=== PATIENT | female | born 1985 | race Caucasian/White ===

== ENCOUNTER 2017-02-16 21:43 | Emergency (ER) | payer OTHER ==
[2017-02-16] MEDS ORDERED: SODIUM CHLORIDE 0.9% 1000 ML INFUS.BAG IV ONE (22:04)
[2017-02-16] MEDS ORDERED: ACETAMINOPHEN 325 MG TABLET (FP) PO ONE (22:05)
--- NOTE | 2017-02-16 22:05 | PDOC ---
History of Present Illness - General History Source: Patient Exam Limitations: No Limitations - History of Present Illness Initial Comments: 02/16/17 22:05 Patient is a 31 year old female, 22 weeks , who presents to the ED sent by her DIGITAL BUSINESS ANALYST for left flank pain and left sided abdominal pain. Patient states that the pain is localized at the left flank radiating to the left mid abdomen, sharp in nature and is exacerbated by movement and deep inspiration. Patient states that she developed the following pain at 4 PM today. She notes that she felt the same pain 3 weeks ago that lasted for approximately 45 mins and resolved on its own. She denies any hx of DVT or PE. She denies any fever, chills, nausea, vomiting or diarrhea. She denies dysuria, hematuria, urgency or hesitancy. Productivity Engineer - Dr. Nice <Treasure Loaiza - Last Filed: 02/16/17 22:05> <Elvia Fernandez - Last Filed: 02/17/17 00:15> - General Stated Complaint: PAIN Past History <Treasure Loaiza - Last Filed: 02/16/17 22:05> <Elvia Fernandez - Last Filed: 02/17/17 00:15> - Past Medical History Allergies/Adverse Reactions: Allergies Allergy/AdvReac Type Severity Reaction Status Date / Time No Known Allergies Allergy Verified 02/16/17 22:26 Review of Systems - Review of Systems Able to Perform ROS?: Yes Comments:: 02/16/17 22:06 GENERAL/CONSTITUTIONAL: No fever or chills. No weakness. HEAD, EYES, EARS, NOSE AND THROAT: No change in vision. No ear pain or discharge. No sore throat. GASTROINTESTINAL: (+)left sided abdominal pain. No nausea, vomiting, diarrhea or constipation. GENITOURINARY: No dysuria, frequency, or change in urination. CARDIOVASCULAR: No chest pain or shortness of breath. RESPIRATORY: No cough, wheezing, or hemoptysis. MUSCULOSKELETAL: (+)left flank pain. No joint or muscle swelling or pain. No neck or back pain. SKIN: No rash NEUROLOGIC: No headache, vertigo, loss of consciousness, or change in strength/ sensation. ENDOCRINE: No increased thirst. No abnormal weight change. HEMATOLOGIC/LYMPHATIC: No anemia, easy bleeding, or history of blood clots. ALLERGIC/IMMUNOLOGIC: No hives or skin allergy. <Treasure Loaiza - Last Filed: 02/16/17 22:05> *Physical Exam - Physical Exam Comments: 02/16/17 22:07 GENERAL: Awake, alert, and fully oriented, in no acute distress HEAD: No signs of trauma EYES: PERRLA, EOMI, sclera anicteric, conjunctiva clear ENT: Auricles normal inspection, nares patent, Moist mucosa NECK: Normal ROM, supple, no lymphadenopathy, JVD, or masses LUNGS: Breath sounds equal, clear to auscultation bilaterally. No wheezes, and no crackles HEART: Regular rate and rhythm, normal S1 and S2, no murmurs, rubs or gallops ABDOMEN: (+)Left mid quadrant tenderness and left flank tenderness upon palpation. (+)Gravid. Soft,normoactive bowel sounds. No guarding, no rebound. EXTREMITIES: Normal range of motion, no edema. No clubbing or cyanosis. No cords, erythema, or tenderness NEUROLOGICAL: Normal speech SKIN: Warm, Dry, normal turgor, no rashes or lesions noted. <Treasure Loaiza - Last Filed: 02/16/17 22:05> ED Treatment Course - LABORATORY CBC & Chemistry Diagram: 02/16/17 22:40 02/16/17 22:40 <Elvia Fernandez - Last Filed: 02/17/17 00:15> Medical Decision Making - Medical Decision Making 02/16/17 21:59 31 yo F at 22 weeks here wtih c/o left sided abd pain, flank pain. started yesterday. worse withh movement and coughing, or deep breathing, also walking. no cp. no leg swelling. no ho pe or dvt. no vaginal bleeding. no loss of fluid. no urinary complaints. no h/o renal colic, no family h/o stones. had similar pain 3 weeks ago that lasted 45 min and resolved. on exam awake alert, NAD. lungs CTAB no wheeze or crackle. heart RRR no m/r/g. abd soft gravid. left mid quadrant ttp, left CVA tenderness legs no edema. plan : bedside ultrasound renal: no hydronephrosis noted. bladder no visualized stone. gravid uterus, heart rate 122 bpm, movement noted. femur length, 22 weeks and 2 days. differential uti pyelo, strain of . plan labs ua d/w pt ob. tylenol for pain control.. 02/17/17 00:12 pt labs and ua normal d/w pt dr dr. Burnham, will see in office tomorrow. told to call. recommend heat packs and tylenol. <Elvia Fernandez - Last Filed: 02/17/17 00:15> *DC/Admit/Observation/Transfer - Attestations Physician Attestion: 02/16/17 22:08 Documentation prepared by JOCY Pappas, acting as medical assistant supervisor for Elvia Fernandez MD. <Treasure Loaiza - Last Filed: 02/16/17 22:05> - Discharge Dispostion Admit: No <Elvia Fernandez - Last Filed: 02/17/17 00:15> Diagnosis at time of Disposition: Flank pain - Discharge Dispostion Disposition: HOME Condition at time of disposition: Improved - Patient Instructions Printed Discharge Instructions: Medications and Additional Instructions: you can use heat packs on your back for pain. drink plenty of fluids. follow up wt Dr. Burnham. you can take tylenol 500 mg every 6 hours as needed for pain. - Post Discharge Activity Work/School Note: Back to Work
[2017-02-16 22:26] VITALS: BP 115/60; PULSE 89; TEMP 97.4; BMI 29.8
[2017-02-16] MEDS ORDERED: ACETAMINOPHEN 325 MG TABLET (FP) ONE (22:27)
[2017-02-16 23:09] LABS: BASOPHIL 0.6 % (0-2.0); EOSINOPHIL 2.5 % (0-4.5); MCH 30.6 pg (25.7-33.7); MCHC 32.7 g/dl (32.0-36.0); MEAN CELL VOLUME 93.6 fl (80-96); NEUTROPHILS 70.3 % (42.8-82.8); PLATELET COUNT 313 K/MM3 (134-434); RDW 13.4 % (11.6-15.6); WHITE BLOOD COUNT 13.4 K/mm3 (4.0-10.0)
[2017-02-16 23:29] LABS: ANION GAP 13 (8-16); BILIRUBIN,TOTAL 0.1 mg/dL (0.2-1.0); CALCIUM 8.6 mg/dL (8.5-10.1); CO2 20 mmol/L (21-32); COCKROFT - GAULT 215.9595; CREATININE 0.5 mg/dL (0.55-1.02); GLUCOSE,RANDOM 92 mg/dL (74-106); SGOT/AST 12 U/L (15-37); SGPT/ALT 23 U/L (12-78); TOT PROT 6.4 g/dl (6.4-8.2)
[2017-02-16 23:30] LABS: ALK PHOS 70 U/L (45-117)
== END 2017-02-17 00:15 | disposition home or self-care (01) ==
LOC: SUPCPDRO 21:43 → JER 21:43
DX: O26.892 Other specified pregnancy related conditions, second trimester (principal); Z3A.22 22 weeks gestation of pregnancy; R10.32 Left lower quadrant pain
CPT/HCPCS: 36415; 80053; 85025; 99282-25

== ENCOUNTER 2017-06-01 09:20 | Inpatient (IN) | payer OTHER ==
[2017-06-01] MEDS ORDERED: ELECTROLYTE-148 SOLN 500 ML IV SCH ×2 (12:00→13:00)
[2017-06-01] MEDS ORDERED: TUBERCULIN PPD 5 TU/0.1ML SYRINGE (IN PATIENT USE ONLY) ID ONE (12:18)
[2017-06-01 12:35] LABS: MCH 30.3 pg (25.7-33.7); MCHC 33.3 g/dl (32.0-36.0); MEAN PLT VOLUME 9.3 fl (7.5-11.1); PLATELET COUNT 322 K/MM3 (134-434); RDW 14.5 % (11.6-15.6); WHITE BLOOD COUNT 22.5 K/mm3 (4.0-10.0)
[2017-06-01 12:48] VITALS: BMI 33.4
[2017-06-01 12:48] LABS: INR 0.98 (0.82-1.09); PROTHROMBIN TIME (PATIENT) 10.8 SEC (9.98-11.88)
[2017-06-01 12:50] LABS: ACTIVATED PTT 27.2 SECONDS (26.9-34.4)
[2017-06-01 13:02] LABS: ANION GAP 10 (8-16); CALCIUM 8.9 mg/dL (8.5-10.1); CO2 23 mmol/L (21-32); CREATININE 0.6 mg/dL (0.55-1.02); GLUCOSE,RANDOM 105 mg/dL (74-106)
[2017-06-01] MEDS: OXYTOCIN 20 UNITS in 0.9% NS 1,000 ML IV SCH ×2 (15:50→17:08)
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
[2017-06-01 15:56] LABS: TOTAL CELLS COUNTED 100
--- NOTE | 2017-06-01 15:59 | PN ---
Delivery - Delivery Vaginal Delivery: No Problems Type of Anesthesia: Epidural Episiotomy/Laceration: Midline, 1st degree EBL (cc): 300 Delivery, Single - Stages of Labor Date 1st Stage Initiatied: 06/01/17 Time 1st Stage Initiated: 04:30 Date 2nd Stage Initiated: 06/01/17 Time 2nd Stage Initiated: 14:40 Date of Delivery: 06/01/17 Time of Delivery: 15:27 Date Placenta Delivered: 06/01/17 Time Placenta Delivered: 15:50 Placenta: Yes: Spontaneous - Condition of Infant Infant Gender: Male Position: Left, OA Total Hours ROM (Hrs/Mins): 11 hours 20 minutes - 1 Minute Total Score: 9 5 Minutes Total Score: 9 - [place] Feeding Plan Initial Plan: Exclusive throughout hospitalization Remarks - Remarks Remarks: Patient progressed to fully dilated and at 1527 via delivered a viable male infant in LUIS position, APGARs 9,9. Weight and length unknown at this time. Head delivered spontaneously followed by shoulders and body without difficulty. with spontaneous cry and placed on mother's abdomen. Nose and mouth was bulb suctioned. Cord was clamped and cut. Perineum and vagina examined, a first degree perineal and R periurethreal laceration was noted and repaired in the usual fashion. Rectal exam revealed no sutures in rectum. Placenta was delivered spontaneously and intact. 20 units of pitocin in 1 L IVF was given. All counts correct x 2. Mother and stable in LDR. EBL 300cc.
[2017-06-01] MEDS ORDERED: BENZOCAINE 28 GM HEMORRHOIDAL OINTMENT TP PRN (16:00)
[2017-06-01] MEDS ORDERED: BENZOCAINE 20% 57 GM BOTTLE TP PRN (16:00)
[2017-06-01] MEDS ORDERED: oxyCODONE HCL 5 MG TABLET PO PRN (16:00)
[2017-06-01] MEDS ORDERED: METHYLERGONOVINE MALEATE 0.2 MG/1 ML AMP IM PRN (16:00)
[2017-06-01] MEDS ORDERED: BISACODYL 10 MG SUPP.RECT RC PRN (16:00)
[2017-06-01] MEDS ORDERED: WITCH HAZEL 50% (TUCKS) 40 PAD/JAR PAD TP PRN (16:00)
[2017-06-01] MEDS: ACETAMINOPHEN 325 MG TABLET (FP) PO PRN (21:08)
--- NOTE | 2017-06-02 07:16 | PN ---
Post Progress Note - Subjective Subjective: Patient without acute complaints. Reports tolerating oral intake without nausea or vomiting. Ambulating without dizziness. Denies fevers or chills. Pain well controlled with oral pain medication. without difficulty. Passing flatus. Post Day: 1 Type of Delivery: Vital Signs: Vital Signs Temperature 98.0 F 06/02/17 06:00 Pulse Rate 67 06/02/17 06:00 Respiratory Rate 18 06/02/17 06:00 Blood Pressure 102/64 06/02/17 06:00 O2 Sat by Pulse Oximetry (%) 100 06/01/17 16:00 Breast Exam: Yes: Soft Uterus: Yes: Fundus Firm, Fundus below umbilicus Abdomen/GI: Yes: Abdomen soft, Passing flatus, Tolerating PO. No: Tender Lochia: Yes: Serosa Lochia, amount: Moderate Extremities: Yes: Calves non-tender, Edema (trace) Activity: Ambulating - Labs Labs: CBC WBC 22.5 K/mm3 (4.0-10.0) H D 06/01/17 12:20 RBC 3.99 M/mm3 (3.60-5.2) 06/01/17 12:20 Hgb 12.1 GM/dL (10.7-15.3) 06/01/17 12:20 Hct 36.3 % (32.4-45.2) 06/01/17 12:20 MCV 91.0 fl (80-96) 06/01/17 12:20 MCH 30.3 pg (25.7-33.7) 06/01/17 12:20 MCHC 33.3 g/dl (32.0-36.0) 06/01/17 12:20 RDW 14.5 % (11.6-15.6) 06/01/17 12:20 Plt Count 322 K/MM3 (134-434) 06/01/17 12:20 MPV 9.3 fl (7.5-11.1) 06/01/17 12:20 Total Counted 100 06/01/17 12:20 Neutrophils % Y 06/01/17 12:20 Neutrophils % (Manual) 90 % (42.8-82.8) H 06/01/17 12:20 Lymphocytes % Y 06/01/17 12:20 Lymphocytes % (Manual) 6 % (8-40) L 06/01/17 12:20 Monocytes % (Manual) 4 % (3.8-10.2) 06/01/17 12:20 Assessment/Plan 32 yo PPD #1 s/p , afebrile, vital signs stable, doing well 1. Continue routine care. 2. Follow up AM CBC 3. Rh positive status, no rhogam indicated. 4. Encourage ambulation 5. Continue oral pain medication 6. Anticipate discharge home day #2
[2017-06-02] MEDS: IBUPROFEN 600 MG TABLET (FP) PO PRN ×2 (08:08→20:45)
[2017-06-02] MEDS: ACETAMINOPHEN 325 MG TABLET (FP) PO PRN ×2 (08:09→20:55)
[2017-06-02 09:12] LABS: BASOPHIL 0.6 % (0-2.0); EOSINOPHIL 0.9 % (0-4.5); MCH 30.1 pg (25.7-33.7); MCHC 32.8 g/dl (32.0-36.0); MEAN CELL VOLUME 91.8 fl (80-96); MEAN PLT VOLUME 8.8 fl (7.5-11.1); NEUTROPHILS 76.9 % (42.8-82.8); PLATELET COUNT 273 K/MM3 (134-434); RDW 14.4 % (11.6-15.6); WHITE BLOOD COUNT 17.4 K/mm3 (4.0-10.0)
[2017-06-02] MEDS: PRENATAL VITAMINS W/ FOLIC ACID TABLET (FP) PO SCH (09:23)
[2017-06-02] MEDS ORDERED: FLU VACC QS2017-18 36MOS UP/PF 60 MCG/0.5 ML SYRINGE IM ONE ×2 (10:00)
[2017-06-02] MEDS ORDERED: SENNOSIDES/DOCUSATE COMBO (SENNA PLUS) TABLET (UD) PO PRN (22:00)
[2017-06-03] MEDS: ACETAMINOPHEN 325 MG TABLET (FP) PO PRN (05:25)
[2017-06-03] MEDS: IBUPROFEN 600 MG TABLET (FP) PO PRN (05:28)
--- NOTE | 2017-06-03 08:45 | PN ---
Progress Note (short form) - Note Progress Note: ppd 1 doing well, no c/o , voids ok CBC, BMP 06/02/17 08:45 06/01/17 12:20 Last Vital Signs Temp Pulse Resp BP Pulse Ox 97.9 F 92 H 18 108/64 100 06/02/17 22:00 06/02/17 22:00 06/02/17 22:00 06/02/17 22:00 06/01/17 16:00 abdomen soft, no distension, no cva uterus firm, non tender lochia mild no calf tenderness plan ambulate, oberve
[2017-06-03] MEDS: PRENATAL VITAMINS W/ FOLIC ACID TABLET (FP) PO SCH (09:29)
[2017-06-03 11:19] VITALS: BP 105/66; PULSE 75; TEMP 98.1
--- NOTE | 2017-07-01 10:46 | DS ---
Physical Exam-EXPLOSIVES HANDLER Vital Signs: Vital Signs Temperature 98.1 F 06/03/17 10:00 Pulse Rate 75 06/03/17 10:00 Respiratory Rate 20 06/03/17 10:00 Blood Pressure 105/66 06/03/17 10:00 O2 Sat by Pulse Oximetry (%) 100 06/01/17 16:00 Labs: CBC, BMP 06/02/17 08:45 06/01/17 12:20 Delivery - Delivery Vaginal Delivery: No Problems Type of Anesthesia: Epidural Episiotomy/Laceration: Midline, 1st degree EBL (cc): 300 Delivery, Single - Stages of Labor Date 1st Stage Initiatied: 06/01/17 Time 1st Stage Initiated: 04:30 Date 2nd Stage Initiated: 06/01/17 Time 2nd Stage Initiated: 14:40 Date of Delivery: 06/01/17 Time of Delivery: 15:27 Time Placenta Delivered: 15:50 Placenta: Yes: Spontaneous - Condition of Infant Personal Injury Paralegal/Tint Layer Present: No Gender: Male Weight: 6 lb 2 oz Position: Left, OA Total Hours ROM (Hrs/Mins): 11 hours 20 minutes - 1 Minute Total Score: 9 5 Minutes Total Score: 9 - Feeding Plan Initial Plan: Exclusive throughout hospitalization Discharge Summary Reason For Visit: LABOR Procedures: Principal: vaginal delivery Hospital Course: patient admitted in labor uncomplicated Remained afebrile, vital signs stable, for discharge home PPD #2 Condition: Good - Instructions Diet, Activity, Other Instructions: regular diet, follow up ofice 4 weeks, if pain, heavy bleeding call MD Referrals: Betsy Hunter MD [Staff Physician] - Disposition: HOME - Home Medications Comprehensive Discharge Medication List: Ambulatory Orders Vit/Iron Fumarate/FA [ Tablet] 1 tablet PO DAILY 06/01/17 Ibuprofen [Motrin -] 600 mg PO QID #28 tablet 06/02/17
== END 2017-06-03 13:00 | disposition home or self-care (01) | DRG 775 ==
LOC: JDEL 09:20 → JLDR 12:00 → J3W 17:25
PROVIDERS: ADMIT Obstetrics & Gynecology; ATTEND Obstetrics & Gynecology
PROC: 10E0XZZ Delivery of Products of Conception, External Approach (ICD-10-PCS; principal; 2017-06-01)
PROC: 0W8NXZZ Division of Female Perineum, External Approach (ICD-10-PCS; 2017-06-01)
PROC: 0HQ9XZZ Repair Perineum Skin, External Approach (ICD-10-PCS; 2017-06-01)
DX: O42.02 Full-term premature rupture of membranes, onset of labor within 24 hours of rupture (principal); O70.0 First degree perineal laceration during delivery; Z37.0 Single live birth; Z3A.37 37 weeks gestation of pregnancy
CPT/HCPCS: 36415; 59409; 80048; 85025; 85610; 85730; 86593; 86850; 86900; 86901; 90686; G0008